=== PATIENT | female | born 1995 | race Caucasian/White ===

== ENCOUNTER 2017-09-02 13:57 | Emergency (ER) | payer SELFPAY ==
[~2017-09-02] VITALS: Ht 162.6 cm; Wt 68.0 kg
[2017-09-02 15:20] VITALS: BP 128/76
--- NOTE | 2017-09-02 16:15 | NUR ---
PATIENT TO BED # 11
--- NOTE | 2017-09-02 16:29 | NUR ---
Received ALOX4 with pt stating that she started bleeding this morning but came into the ER due to lower abd cramping, pt states that it is a large amt of bleeding and that she thinks that she is having a miscarriage.
[2017-09-02 16:36] LABS: BASOPHILS # (AUTO) 0.2 K/uL (0.00-0.22); BASOPHILS % (AUTO) 1.6 % (0.0-2.0); EOSINOPHILS # (AUTO) 0.1 K/uL (0-0.4); EOSINOPHILS % (AUTO) 1.3 % (0.0-4.0); HEMATOCRIT 41.9 % (36-48); HEMOGLOBIN 13.5 g/dL (12.0-16.0); LYMPHOCYTES # (AUTO) 2.2 K/uL (2.5-16.5); LYMPHOCYTES % (AUTO) 20.2 % (20.5-51.1); MEAN CORPUSCULAR HEMOGLOBIN 26 pg (27-31); MEAN CORPUSCULAR HGB CONC 32 g/dL (33-37); MEAN CORPUSCULAR VOLUME 80 fL (80-94); MONOCYTES # (AUTO) 0.5 K/uL (0.8-1.0); MONOCYTES % (AUTO) 4.8 % (1.7-9.3); NEUTROPHILS % (AUTO) 72.1 % (42.2-75.2); PLATELET COUNT (AUTO) 450 K/uL (140-450); RED BLOOD CELL COUNT(AUTO) 5.24 MIL/uL (4.20-5.40); RED CELL DISTRIBUTION WIDTH 20.4 % (11.6-13.7)
--- NOTE | 2017-09-02 16:44 | NUR ---
PATIENT TAKEN TO U/S VIA WHEELCHAIR AT THIS TIME.
[2017-09-02 16:48] LABS: APPEARANCE,URINE HAZY (CLEAR); BLOOD, URINE 3+ (NEGATIVE); COLOR,URINE YELLOW (YELLOW); UGLUCOSE NEGATIVE (NEGATIVE)
[2017-09-02 16:49] LABS: BILIRUBIN,URINE NEGATIVE (NEGATIVE); LEUKOCYTE ESTERASE ,URINE 1+ (NEGATIVE); NITRITE, URINE NEGATIVE (NEGATIVE)
[2017-09-02 16:51] LABS: RBC,URINE 0-5 (RARE) /HPF (0-5)
[2017-09-02 16:54] LABS: PROTHROMBIN TIME 9.9 secs (10.8-13.4)
[2017-09-02 17:11] LABS: ANION GAP 12.5 (8-16); CARBON DIOXIDE 27.9 mmol/L (21-32); CREATININE 0.7 mg/dL (0.6-1.3); POTASSIUM 3.4 mmol/L (3.5-5.1); TOTAL BILIRUBIN 0.2 mg/dL (0.0-1.0)
[2017-09-02 17:12] LABS: ALBUMIN 3.8 g/dL (3.4-5.0)
--- NOTE | 2017-09-02 17:26 | NUR ---
Pt returned to unit in stable condition from radiology.
--- NOTE | 2017-09-02 18:32 | NUR ---
Pelvic exam complete with nurse at bedside
--- NOTE | 2017-09-02 18:32 | NUR ---
Home with [facility], pt states that she understands.
[2017-09-02 18:33] VITALS: BP 133/75
== END 2017-09-02 18:33 | disposition home or self-care (01) ==
LOC: MED 13:57
DX: O03.9 Complete or unspecified spontaneous abortion without complication (principal); Z88.0 Allergy status to penicillin
CPT/HCPCS: 36415; 76801; 80053; 81001; 81025; 84702; 85025; 85610; 85730; 86886; 86900; 86901; 87086; 99285